=== PATIENT | male | born 1970 | race Caucasian/White ===

== ENCOUNTER 2016-06-08 22:19 | Observation (INO) | payer BC ==
[~2016-06-08] VITALS: Ht 172.7 cm; Wt 93.5 kg
[~2016-06-08 22:19] MED LIST: ZITHROMAX Z PA250 MG PO
[2016-06-08 22:52] VITALS: BP 16/91
[2016-06-08] MEDS ORDERED: SYMBICORT1 AE1 IH (23:00)
--- NOTE | 2016-06-08 23:46 | Emergency Room Report ---
History of Present Illness Time Seen by 230 Presenting Problem in Triage Pt arrived:Wheelchair Presenting Problem:BLOOD IN URINE AFTER SELF CATH TODAY. NO OTHER PAIN OR SYMPTOMS Onset of symptoms date/time:/ or onset unknown for:MEDICAL HX UNKNOWN Treatment Prior to Arrival: COMMISSIONING SPECIALIST Provided by: Sepsis Risk Assessment: Temp: 98 B/P: MAP: 66 Pulse: 83 Resp: 20 Recent fever? N Clinical Suspician of Infection? N Mental Status: 1 - Regular (Normal Baseline) Sepsis Risk:Low Sepsis Risk Have you (or family members/close friends) recently traveled outside the [place]? N If Yes, where/when: Have you had exposure to infectious disease within the past month? TB? Other? Specify: Source patient, RN notes reviewed, family, old records Exam Limitations no limitations Comment paraplegic after self cath had hematuria and now distended bladder - no fever or vomiting Cardiac Chest Pain Chest pain indicative of cardiac No Timing/Duration this evening Severity moderate ALLERGIES Coded Allergies: Penicillins (06/08/16) cephalexin (From KEFLEX) (06/08/16) nitrofurantoin (From MACRODANTIN) (06/08/16) Home Medications Reported Medications BUDESONIDE/FORMOTEROL FUMARATE (Symbicort 160-4.5 Mcg Inhaler) 1 PUFF IH BID #10 History Medical History General Angina: No [place]: No Hypertension? No Hyperlipidemia? No CHF? No COPD? No Asthma? Yes CVA? No Seizures? No Diabetes? No GB Disease: No MRSA? No TB? No Cancer? No More? Yes Additional hx: T4 INJURY. Immunization Hx DT/Tetanus UNKNOWN Surgical Hx Previous Surgery?Y LUKEE RODS IN BACK RODS REMOVED SCOPE PROCEDURE ON GALL- BLADDER Social History Smoking Hx Smoker: Former Smoker Tobacco: No Alcohol Alcohol: No Drugs none Review of Systems All Other Systems Reviewed and Negative Constitutional denies fever Eyes denies drainage ENT denies: ear discharge, epistaxis, throat pain. Respiratory denies cough, denies shortness of breath, denies wheezing Cardiovascular denies chest pain, denies syncope Gastrointestinal denies abdominal pain, denies diarrhea, denies vomiting Genitourinary see HPI, hematuria. denies: dysuria, frequency, hesitancy. Musculoskeletal denies joint pain, denies neck pain Skin denies rash Psychiatric/Neurological denies headache, denies seizure Physical Exam Vital Signs Vital Signs Date Time Temp Pulse Resp B/P Pulse O2 O2 Flow FiO2 Ox Delivery Rate 06/08 2252 98.0 83 20 99 - WBC >12,000 or <4,000 or 10% bands? 2 or more SIRS Criteria Met? B/P: MAP:66 Creatinine >2.0? UA output<0.5ml/kg/hr for 2 hrs? Platelet count >100,000? Lactate >2.0mmol/1? INR >1.2 or PTT > than 60 sec? Evidence of Organ Dysfunction? Provider documented clinical suspician of infection? N Sepsis Criteria Count: 1 Sepsis Risk: Low Sepsis Risk General Appearance no apparent distress Eye Exam - bilateral eye PERRL, bilateral eye EOMI Ear, Nose, Throat normal ENT inspection Neck supple Respiratory Status No: respiratory distress. Cardiovascular regular rate/rhythm Peripheral Pulses Pulses normal Yes Gastrointestinal soft, no guarding, no rebound, tenderness, distended bladder Extremities normal inspection Neurologic paraplegic Mental status normal mood/affect Skin intact Medical Decision Making LABS/Meds/Orders Pt receiving controlled substance in ED? No Results/Orders Laboratory Tests 06/09/16 0130: Urine Color RED, Urine Appearance Turbid, Urine pH 7.0, Ur Specific [place] 1.020, Urine Protein 3+ H, Urine Ketones NEGATIVE, Urine Blood 3+ H, Urine Nitrate POSITIVE H, Urine Bilirubin NEGATIVE, Urine Urobilinogen 0.2, Ur Leukocyte Esterase 1+ H, Urine RBC TNTC, Urine WBC 3-5, Urine Bacteria 1+, Urine Glucose NEGATIVE 06/09/16 0039: Sodium 141, Potassium 3.9, Chloride 106, Carbon Dioxide 29, BUN 18, Creatinine 0.8, Estimated Creat Clear 148, Estimated GFR (MDRD) 104, Glucose 118 H, Calcium 9.0, Total Bilirubin 0.5, AST 15, ALT 28, Alkaline Phosphatase 131 H, Total Protein 7.7, Albumin 3.8, Globulin 3.9 H, Albumin/Globulin Ratio 1.0 L, WBC 10.4, RBC 5.48, Hgb 15.9, Hct 47.3, MCV 86.4, RDW 13.8, Plt Count 229, MPV 6.0 L, Gran % 78.4, Gran # 8.1 H, Lymphocytes % 12.6, Monocytes % 4.7, Eosinophils % 3.8, Basophils % 0.5, Lymphocytes # 1.3, Monocytes # 0.5, Eosinophils # 0.4, Basophils # 0.1, PUBS MCHC 33.5, MCH 29.0 Current Medication Orders Sig/Peyman Start time Last Medication Dose Route Stop Time Status Admin Levofloxacin/Dextrose 150 ML ONCE ONE 06/09 0315 CKDr IV 06/09 0444 Sodium Chloride 10 ML PRN PRN 06/09 0030 AC IV 06/10 0022 Orders Procedure Date/time Status DIET-NOTHING BY MOUTH 06/09 B Active CULTURE, URINE 06/[address] ABD & PELVIS W/O CONTRAST 06/[address] SCAN REQ 06/09 0023 Complete IV SALINE LOCK 06/09 0023 Active CULTURE, BLOOD 06/09 0023 Active COMPLETE METABOLIC PANEL 06/09 0023 Complete CBC WITH AUTO DIFF 06/09 0023 Complete URINARY CATHETER INSERT 06/08 2302 Active URINALYSIS/COMPLETE 06/08 2302 Complete XRAY/CT/US XRAY/CT/US CT abdomen, pelvis CT interpretation by discussed w/radiologist Time results known: 0259 CT Results abnormal (distended bladder ) Procedures Cath/NG/IV/CPR/Add.Proc Physician assisted procedures Risks/benefits discussed with pt/guardian? Yes Physician performed Hill cath insert simple. Departure Departure Time of Disposition 0300 Disposition Still a Patient Clinical Impression Primary Impression: Hematuria Secondary Impressions: Acute urinary retention Condition STABLE Referrals Arnaud Millard MD (Family) discussed with dr leanne [facility] Critical Care No at 0311
[2016-06-09 00:49] LABS: HEMOGLOBIN 15.9 g/dL (14.1-18.0); LYMPH # 1.3 K/mm3 (0.7-4.5); LYMPH % 12.6 % (10-50)
[2016-06-09 02:12] LABS: URINE BILIRUBIN - DIPSTICK NEGATIVE (NEG); URINE BLOOD 3+ (NEG)
[2016-06-09 04:25] VITALS: BP 148/92
[2016-06-09] MEDS ORDERED: PROAIR HFA0.09 MG/AC IH (04:48)
--- NOTE | 2016-06-09 07:15 | HISTORY AND PHYSICAL REPORT ---
Demographics: Admit date: 06/08/16 Chief complaint: Bladder although obstruction/hematuria PRIMARY DIAGNOSIS: HEMATURIA Allergies: Coded Allergies: Penicillins (06/08/16) cephalexin (From KEFLEX) (06/08/16) nitrofurantoin (From MACRODANTIN) (06/08/16) History of present illness: History of present illness: 45-year-old white male paraplegic from remote accident who does self catheter at home for urinary drainage and yesterday noticed that he was meeting some resistance when he inserted a urinary catheter had some bleeding. Last night after removing his pad to go to bed he noticed more blood and some blood mixed with urine and came to the emergency department where CT scan showed significantly distended bladder a Hill catheter was placed with significant drainage of bloody urine. He is admitted to hospital for antibiotics given his urinary retention and her urine sediment and a urology consultation. This morning he feels much better Past medical history: Family HX Diabetes No CAD No Hypertension No Hyperlipidemia No Cancer Yes TB No Immunization HX DT/Tetanus UNKNOWN Pneumonia Never Had TB Test in last year No General Angina: No RI: No Hypertension? No Hyperlipidemia? No CHF? No COPD? No Asthma? Yes CVA? No Seizures? No Diabetes? No GB Disease: No MRSA? No TB? No Cancer? No More? Yes Additional hx: T4 INJURY. Past Surgical HX Previous Surgery?Y LUKEE RODS IN BACK RODS REMOVED SCOPE PROCEDURE ON GALL- BLADDER Current home meds: Reported Medications BUDESONIDE/FORMOTEROL FUMARATE (Symbicort 160-4.5 Mcg Inhaler) 1 PUFF IH BID #10 Albuterol Sulfate (Proair Hfa) 1 PUFF IH Q6HP PRN SOA #17 Social Hx: Smoking HX Tobacco No Alcohol Alcohol: No Hx of Drug Use Drug Use? No Patien't marital status is single Patient's support system is excellent Review of systems: Constitutional No: fever, malaise, weakness. Respiratory No: no symptoms reported. Cardiovascular No no symptoms reported Gastrointestinal/Abdominal No no symptoms reported Genitourinary see HPI. Musculoskeletal No: no symptoms reported. Neurological Yes: see HPI. Exam: Lab data for last 24 hours: Laboratory Tests 06/09/16 0130: Urine Color RED, Urine Appearance Turbid, Urine pH 7.0, Ur Specific [place] 1.020, Urine Protein 3+ H, Urine Ketones NEGATIVE, Urine Blood 3+ H, Urine Nitrate POSITIVE H, Urine Bilirubin NEGATIVE, Urine Urobilinogen 0.2, Ur Leukocyte Esterase 1+ H, Urine RBC TNTC, Urine WBC 3-5, Urine Bacteria 1+, Urine Glucose NEGATIVE 06/09/16 0039: Sodium 141, Potassium 3.9, Chloride 106, Carbon Dioxide 29, BUN 18, Creatinine 0.8, Estimated Creat Clear 148, Estimated GFR (MDRD) 104, Glucose 118 H, Calcium 9.0, Total Bilirubin 0.5, AST 15, ALT 28, Alkaline Phosphatase 131 H, Total Protein 7.7, Albumin 3.8, Globulin 3.9 H, Albumin/Globulin Ratio 1.0 L, WBC 10.4, RBC 5.48, Hgb 15.9, Hct 47.3, MCV 86.4, RDW 13.8, Plt Count 229, MPV 6.0 L, Gran % 78.4, Gran # 8.1 H, Lymphocytes % 12.6, Monocytes % 4.7, Eosinophils % 3.8, Basophils % 0.5, Lymphocytes # 1.3, Monocytes # 0.5, Eosinophils # 0.4, Basophils # 0.1, PUBS MCHC 33.5, MCH 29.0 Microbiology 06/09 0130 URINE CC: Urine Culture - RECD 06/09 38 BLOOD: Anaerobic Blood Culture - RECD 06/09 38 BLOOD: Aerobic Blood Culture - RECD Admission vital signs: 1ST Vital Signs Result Date Time Pulse Ox 99 06/09 2251 B/P 16/91 06/09 2251 Temp 98.0 06/09 2251 Pulse 83 06/08 2252 Resp 20 06/08 2252 O2 Delivery ROOM AIR 06/09 0425 Additional information: Patient is pleasant alert, talkative, oriented x3. Cranial nerves intact, heart rate regular, lungs clear. Abdomen is soft, patient has no tenderness but normally does not feel abnormal pain with his paraplegia symptoms. Neurology exam of the lower extremity is markedly abnormal as previously noted. Hill catheter is in place, draining bloody urine. Plan: Problem List 1. Acute urinary retention 2. Hematuria Plan: Plan will be to admit to hospital. Urology consultation. Antibiotics. Await urine culture. at 0714
--- NOTE | 2016-06-09 07:32 | RADIOLOGY REPORT PS360 ---
CT ABD PELVIS W/O CONTRAST CLINICAL INDICATION: ABD PAIN/HEMATURIA ORDERING PHYSICIAN: Arnaud Millard MD PATIENT AGE: 45 years COMPARISON: None TECHNIQUE: Axial images obtained with sagittal and coronal reformats. PROCEDURE: Oral Contrast: None IV Contrast: None . FINDINGS: Atelectatic changes are present in the lung bases. There is a 14 mm right lower lobe nodule which does appear to contain some central calcification. There is diffuse artifact from metallic hardware in the lumbar and thoracic spine and the patient's arms. Artifact does obscure fine detail. There is subtle decreased attenuation in the left lobe of the liver. This may be related to the artifact. Cannot exclude underlying mass within the left lobe of the liver. Ultrasound may be of further value. Heterogeneous density is present in the gallbladder and may be due to sludge and/or stones. The spleen and pancreas are unremarkable. There is mild bilateral hydronephrosis and ureteral dilatation. There is distention of the urinary bladder with irregular increased density in the urinary bladder posteriorly and inferiorly measuring 6.8 x 8.4 cm and may be related to blood clot and/or neoplasm. Small amount gas is present in the urinary bladder is well. No intestinal obstruction or free air. No evidence of diverticulitis or appendicitis. Extensive postsurgical changes are present in the lumbar spine. There is posterior subluxation of the right femoral head. There are bilateral hip joint effusions and capsular wall thickening. IMPRESSION: 1. Irregular hyperdensity in the urinary bladder posteriorly and may be related to a blood clot and/or neoplasm. 2. Bilateral hydroureteronephrosis with bladder distention a small amount gas in the urinary bladder. 3. Possible lesion in the left lobe of the liver versus artifact. 4. Sludge and/or stones within the gallbladder. 5. Postsurgical changes of the lumbar spine. Bilateral hip joint effusions with capsular thickening and posterior subluxation of the right hip
[2016-06-09 08:00] VITALS: BP 138/84
[2016-06-09 08:30] VITALS: BP 138/84
[2016-06-09] MEDS ORDERED: [UNRECOGNIZED DRUG - OTHER] MR (10:16)
[2016-06-09] MEDS ORDERED: VIAGRA100 MG PO (10:18)
[2016-06-09] MEDS ORDERED: VITAMIN D50000 I1 PO (10:18)
--- NOTE | 2016-06-09 10:42 | PHARMACY CLINIC NOTE ---
Patient Demographics Patient Demographics Admission date: 06/09/16 Date: 06/09/16 Time: 1042 Allergies Coded Allergies: Penicillins (06/08/16) cephalexin (From KEFLEX) (06/08/16) nitrofurantoin (From MACRODANTIN) (06/08/16) HEIGHT- FT: 5 IN: 8.00 K.497 VTE General Information Labs: Laboratory Tests 06/09 0039 Hematology Hgb (14.1 - 18.0 g/dL) 15.9 Hct (42.0 - 52.0 %) 47.3 Plt Count (142 - 424 K/mm3) 229 Disclaimer The following section includes nursing documentation that has been pulled in for pharmacy review. Patient's VTE score: 2 Patient's VTE Risk: LOW RISK Clinical trial participant? No VTE prophylaxis NQF [id number] VTE prophylaxis ordered? Yes Type of prophylaxis/treatment: SERENE at 1042
--- NOTE | 2016-06-09 14:55 | CONSULT NOTE-UROLOGY ---
Urology Initial Visit Date of Visit: 06/09/16 HPI/Chief Complaint: Referring provider: 45/M Presenting problem: Length of time pt has had problem: Person attending patient for this visit: Patient seen for hospital consultation regarding hematuria. Patient is paraplegic from remote injury. He has not seen urology in several years. He was previously followed by Dr. Schneider but has seen no one since his [facility]. He practices intermittent self-catheterization. He recently had noticed some slight occasional difficulty with catheter placement. The typically if he shifted his body position he was able to catheterize. Yesterday he had a similar experience but after catheter placement he had initially blood-tinged urine which cleared. Later in the day he had significant bleeding per the urethra noted and presented to the emergency room. A Hill catheter was placed and a CT scan obtained. He did appear to have some clot within the bladder. His catheter has drained well. His urinalysis was not trapped positive with leukocytes present. Urine culture is pending. He has had no fever or chills. His serum white count was 10.[address] scan also demonstrated some hydronephrosis. An moderate amount of clot in the bladder. A creatinine of 0.8. Problem List: 1. Hematuria 2. Acute cystitis 3. Neurogenic dysfunction of the urinary bladder 4. Acute urinary retention Past Medical History Arthritis? Diabetes? N Hyperlipedemia? N Hypertension? N Heart Problems? OR? N SOA? Asthma? Y Lung Disease? COPD? N TB? N Anemia? N Bleeding Disorder? Cancer? N Radiation Tx? Hoarsness? Thyroid Problems? Ulcers? N Kidney Disease? Liver Disease? Glaucoma? Seizures? N CVA? N Immune Disease? HIV? Trouble w/anesthesia? Abn PSA? Prostate Biopsy? Sexual Dysfunction? Abn Periods? Female Hormone Problems? Uterus/Ovary Problems? ? : Para: Control? Type of BC: Surgical & Social History: Previous Surgery?Y LUKEE RODS IN BACK RODS REMOVED SCOPE PROCEDURE ON GALL- BLADDER Tobacco Use:N Type: Packs/day: If No, have you ever used and quit how long ago? Alcohol Use: Marital Status: Occupation: Family History: Anemia? Arthritis? Asthma? TB?N Cancer?Y Bleeding Troubles? Hyperlipidemia?N Diabetes?N COPD? Glaucoma? OR? Heart Problems? HIV? Hypertension?N Hoarsness? Immune Disease? Kidney Disease? Liver Disease? Lung Disease? Radiation Tx? Seizures? Shortness of Breath? Ulcers? CVA? Thyroid Problems? Trouble w/Anes? Any men in family ever diagnosed with prostate cancer? Relationship of this person: Current Home Medications Reported Medications BUDESONIDE/FORMOTEROL FUMARATE (Symbicort 160-4.5 Mcg Inhaler) 2 PUFF IH BID #10 Albuterol Sulfate (Proair Hfa) 2 PUFF IH QIDP PRN BREATHING #17 Testosterone Cypionate (Testone Cik) 200 MG MR Q2WKS ERGOCALCIFEROL (VITAMIN D2) (Vitamin D2) 50,000 IUNITS PO TWICE WEEKLY Sildenafil Citrate (Viagra) 100 MG PO DAILYP PRN ERECTILE DYSFUNCTION Allergies: Coded Allergies: Penicillins (06/08/16) cephalexin (From KEFLEX) (06/08/16) nitrofurantoin (From MACRODANTIN) (06/08/16) Vital Signs/Wt/Labs Weight -LB:206 OZ:2 K.497 Method:Bed Scales Height -FT:5 IN:8 CM:172.72 BMI:31.3 Vital Signs Date Time Temp Pulse Resp B/P Pulse O2 O2 Flow FiO2 Ox Delivery Rate 06/09 0830 98.9 96 18 138/84 97 06/09 0800 98.9 96 18 138/84 97 ROOM AIR 06/09 0425 91 06/09 0425 98.1 91 18 148/92 06/09 0425 98 ROOM AIR 06/09 0425 98.1 91 18 148/92 98 ROOM AIR 06/09 0340 74 20 121/68 99 06/08 2252 98.0 83 20 16/91 99 Color: Appearance Glucose: Ketone: Bilirubin: Sp.[place]: pH: Protein: Urobilinogen: Blood: Nitrite: Leukocytes: Urine collection method? Residual (ml): Laboratory Tests 06/09/16 0130: Urine Color RED, Urine Appearance Turbid, Urine pH 7.0, Ur Specific [place] 1.020, Urine Protein 3+ H, Urine Ketones NEGATIVE, Urine Blood 3+ H, Urine Nitrate POSITIVE H, Urine Bilirubin NEGATIVE, Urine Urobilinogen 0.2, Ur Leukocyte Esterase 1+ H, Urine RBC TNTC, Urine WBC 3-5, Urine Bacteria 1+, Urine Glucose NEGATIVE 06/09/16 0039: Sodium 141, Potassium 3.9, Chloride 106, Carbon Dioxide 29, BUN 18, Creatinine 0.8, Estimated Creat Clear 148, Estimated GFR (MDRD) 104, Glucose 118 H, Calcium 9.0, Total Bilirubin 0.5, AST 15, ALT 28, Alkaline Phosphatase 131 H, Total Protein 7.7, Albumin 3.8, Globulin 3.9 H, Albumin/Globulin Ratio 1.0 L, WBC 10.4, RBC 5.48, Hgb 15.9, Hct 47.3, MCV 86.4, RDW 13.8, Plt Count 229, MPV 6.0 L, Gran % 78.4, Gran # 8.1 H, Lymphocytes % 12.6, Monocytes % 4.7, Eosinophils % 3.8, Basophils % 0.5, Lymphocytes # 1.3, Monocytes # 0.5, Eosinophils # 0.4, Basophils # 0.1, PUBS MCHC 33.5, MCH 29.0 Microbiology Date/Time Procedure - Status Source Growth 06/09 0130 Urine Culture - RES URINE CC 06/09 38 Anaerobic Blood Culture - RECD BLOOD 06/09 38 Aerobic Blood Culture - RECD BLOOD Exam: General appearance: alert, no acute distress (he is lying in a hospital bed ) Objective: Urine is dark natasha old blood-tinged urine. Impression/Plan: Neurogenic bladder. Hematuria likely secondary to urinary infection. We will have him change his catheter to a 20 [place] catheter in hopes to evacuate any clot. We will await his urine culture. We will leave the Hill catheter for 1 week. If he is doing well he can be discharged with catheter to leg bag drainage. If clot retention is an issue we may require cystoscopy with clot evacuation. Current plan will be to treat him. He will keep the catheter for 1 week and remove at home. He will resume intermittent catheterization and follow- up with me in 2 weeks. Considering his hydronephrosis I will suggest starting anticholinergics. He relates that he occasionally does have incontinence between catheterizations. at 9360
--- NOTE | 2016-06-09 14:55 | CONSULT NOTE-UROLOGY ---
Urology Initial Visit Date of Visit: 06/09/16 HPI/Chief Complaint: Referring provider: 45/M Presenting problem: Length of time pt has had problem: Person attending patient for this visit: Patient seen for hospital consultation regarding hematuria. Patient is paraplegic from remote injury. He has not seen urology in several years. He was previously followed by Dr. Schneider but has seen no one since his senior living. He practices intermittent self-catheterization. He recently had noticed some slight occasional difficulty with catheter placement. The typically if he shifted his body position he was able to catheterize. Yesterday he had a similar experience but after catheter placement he had initially blood-tinged urine which cleared. Later in the day he had significant bleeding per the urethra noted and presented to the emergency room. A Hill catheter was placed and a CT scan obtained. He did appear to have some clot within the bladder. His catheter has drained well. His urinalysis was not trapped positive with leukocytes present. Urine culture is pending. He has had no fever or chills. His serum white count was 10.[address] scan also demonstrated some hydronephrosis. An moderate amount of clot in the bladder. A creatinine of 0.8. Problem List: 1. Hematuria 2. Acute cystitis 3. Neurogenic dysfunction of the urinary bladder 4. Acute urinary retention Past Medical History Arthritis? Diabetes? N Hyperlipedemia? N Hypertension? N Heart Problems? NM? N SOA? Asthma? Y Lung Disease? COPD? N TB? N Anemia? N Bleeding Disorder? Cancer? N Radiation Tx? Hoarsness? Thyroid Problems? Ulcers? N Kidney Disease? Liver Disease? Glaucoma? Seizures? N CVA? N Immune Disease? HIV? Trouble w/anesthesia? Abn PSA? Prostate Biopsy? Sexual Dysfunction? Abn Periods? Female Hormone Problems? Uterus/Ovary Problems? ? : Para: Control? Type of BC: Surgical & Social History: Previous Surgery?Y LUKEE RODS IN BACK RODS REMOVED SCOPE PROCEDURE ON GALL- BLADDER Tobacco Use:N Type: Packs/day: If No, have you ever used and quit how long ago? Alcohol Use: Marital Status: Occupation: Family History: Anemia? Arthritis? Asthma? TB?N Cancer?Y Bleeding Troubles? Hyperlipidemia?N Diabetes?N COPD? Glaucoma? NM? Heart Problems? HIV? Hypertension?N Hoarsness? Immune Disease? Kidney Disease? Liver Disease? Lung Disease? Radiation Tx? Seizures? Shortness of Breath? Ulcers? CVA? Thyroid Problems? Trouble w/Anes? Any men in family ever diagnosed with prostate cancer? Relationship of this person: Current Home Medications Reported Medications BUDESONIDE/FORMOTEROL FUMARATE (Symbicort 160-4.5 Mcg Inhaler) 2 PUFF IH BID #10 Albuterol Sulfate (Proair Hfa) 2 PUFF IH QIDP PRN BREATHING #17 Testosterone Cypionate (Testone Cik) 200 MG MR Q2WKS ERGOCALCIFEROL (VITAMIN D2) (Vitamin D2) 50,000 IUNITS PO TWICE WEEKLY Sildenafil Citrate (Viagra) 100 MG PO DAILYP PRN ERECTILE DYSFUNCTION Allergies: Coded Allergies: Penicillins (06/08/16) cephalexin (From KEFLEX) (06/08/16) nitrofurantoin (From MACRODANTIN) (06/08/16) Vital Signs/Wt/Labs Weight -LB:206 OZ:2 K.497 Method:Bed Scales Height -FT:5 IN:8 CM:172.72 BMI:31.3 Vital Signs Date Time Temp Pulse Resp B/P Pulse O2 O2 Flow FiO2 Ox Delivery Rate 06/09 0830 98.9 96 18 138/84 97 06/09 0800 98.9 96 18 138/84 97 ROOM AIR 06/09 0425 91 06/09 0425 98.1 91 18 148/92 06/09 0425 98 ROOM AIR 06/09 0425 98.1 91 18 148/92 98 ROOM AIR 06/09 0340 74 20 121/68 99 06/08 2252 98.0 83 20 16/91 99 Color: Appearance Glucose: Ketone: Bilirubin: Sp.[place]: pH: Protein: Urobilinogen: Blood: Nitrite: Leukocytes: Urine collection method? Residual (ml): Laboratory Tests 06/09/16 0130: Urine Color RED, Urine Appearance Turbid, Urine pH 7.0, Ur Specific [place] 1.020, Urine Protein 3+ H, Urine Ketones NEGATIVE, Urine Blood 3+ H, Urine Nitrate POSITIVE H, Urine Bilirubin NEGATIVE, Urine Urobilinogen 0.2, Ur Leukocyte Esterase 1+ H, Urine RBC TNTC, Urine WBC 3-5, Urine Bacteria 1+, Urine Glucose NEGATIVE 06/09/16 0039: Sodium 141, Potassium 3.9, Chloride 106, Carbon Dioxide 29, BUN 18, Creatinine 0.8, Estimated Creat Clear 148, Estimated GFR (MDRD) 104, Glucose 118 H, Calcium 9.0, Total Bilirubin 0.5, AST 15, ALT 28, Alkaline Phosphatase 131 H, Total Protein 7.7, Albumin 3.8, Globulin 3.9 H, Albumin/Globulin Ratio 1.0 L, WBC 10.4, RBC 5.48, Hgb 15.9, Hct 47.3, MCV 86.4, RDW 13.8, Plt Count 229, MPV 6.0 L, Gran % 78.4, Gran # 8.1 H, Lymphocytes % 12.6, Monocytes % 4.7, Eosinophils % 3.8, Basophils % 0.5, Lymphocytes # 1.3, Monocytes # 0.5, Eosinophils # 0.4, Basophils # 0.1, PUBS MCHC 33.5, MCH 29.0 Microbiology Date/Time Procedure - Status Source Growth 06/09 0130 Urine Culture - RES URINE CC 06/09 38 Anaerobic Blood Culture - RECD BLOOD 06/09 38 Aerobic Blood Culture - RECD BLOOD Exam: General appearance: alert, no acute distress (he is lying in a hospital bed ) Objective: Urine is dark natasha old blood-tinged urine. Impression/Plan: Neurogenic bladder. Hematuria likely secondary to urinary infection. We will have him change his catheter to a 20 [place] catheter in hopes to evacuate any clot. We will await his urine culture. We will leave the Hill catheter for 1 week. If he is doing well he can be discharged with catheter to leg bag drainage. If clot retention is an issue we may require cystoscopy with clot evacuation. Current plan will be to treat him. He will keep the catheter for 1 week and remove at home. He will resume intermittent catheterization and follow- up with me in 2 weeks. Considering his hydronephrosis I will suggest starting anticholinergics. He relates that he occasionally does have incontinence between catheterizations. at 4341
[2016-06-09 16:00] VITALS: BP 161/99
[2016-06-09 20:00] VITALS: BP 150/99
[2016-06-10 06:15] VITALS: BP 152/89
[2016-06-10 06:29] LABS: LYMPH # 1.6 K/mm3 (0.7-4.5); LYMPH % 24.7 % (10-50)
[2016-06-10 06:34] LABS: HEMOGLOBIN 14.3 g/dL (14.1-18.0)
--- NOTE | 2016-06-10 07:20 | ACUTE CARE PROGRESS NOTE (QUA) ---
Progress Notes Subjective Date 06/10/16 Time 0717 Note Patient overall feels better. Urology consult note reviewed and appreciated. Patient is pleasant talkative, comfortable. Exam shows clotting in the Hill catheter tube. No evidence of distention today however Objective Findings Last VS-Temp:98.2 B/P:152/89 Pulse:74 Resp:20 SaO2:96 ROOM AIR Last weight lbs:206 oz:2 K.497 Method:Bed Scales Assessment/Plan Problem List 1. Acute urinary retention 2. Hematuria Patient condition Stable, continue irrigation. When clots clear DC home with urology plan. This inpt stay is expected to cross 2 MNs from start of care No at 0766
[2016-06-10 08:00] VITALS: BP 166/95
[2016-06-10 17:40] VITALS: BP 152/98
[2016-06-10 20:30] VITALS: BP 151/88
[2016-06-10 20:50] VITALS: BP 151/88
[2016-06-11 06:00] VITALS: BP 159/87
--- NOTE | 2016-06-11 07:33 | ACUTE CARE PROGRESS NOTE (QUA) ---
Progress Notes Admission Date: 06/09/16 Subjective Date 06/11/16 Time 0730 Note Overall patient had a good night. Urine catheter bleeding cleared, did have some more bleeding after he was moved around a little bit by nursing staff this morning. Does have a small stage I decubitus ulcer on the right hip. Cardiopulmonary exam unchanged. Urine this morning is minimally discolored with some blood but flow seems good in the catheter. Objective Findings Last VS-Temp:98.5 B/P:159/87 Pulse:81 Resp:20 SaO2:97 ROOM AIR Last weight lbs:206 oz:2 K.497 Method:Bed Scales Assessment/Plan Problem List 1. Acute urinary retention 2. Hematuria Patient condition Improving This inpt stay is expected to cross 2 MNs from start of care No Antibiotic Stewardship (2) Current Culture Results Microbiology 06/09 0130 URINE CC: Urine Culture - COMP 06/09 38 BLOOD: Anaerobic Blood Culture - RECD 06/09 38 BLOOD: Aerobic Blood Culture - RECD Infxn that will respond? Yes Right drug,dose,and route? Yes More targeted antbx? No How long atbx needed? 7 at 0756
[2016-06-11] MEDS ORDERED: LEVAQUIN500 MG PO (07:34)
--- NOTE | 2016-06-11 07:37 | DISCHARGE SUMMARY STANDARD ---
Demographics Admit date: 06/08/16 Discharge date: 06/11/16 History of present illness History of present illness 45-year-old white male paraplegic from remote accident who does self catheter at home for urinary drainage and yesterday noticed that he was meeting some resistance when he inserted a urinary catheter had some bleeding. Last night after removing his pad to go to bed he noticed more blood and some blood mixed with urine and came to the emergency department where CT scan showed significantly distended bladder a Hill catheter was placed with significant drainage of bloody urine. He is admitted to hospital for antibiotics given his urinary retention and her urine sediment and a urology consultation. This morning he feels much better Hospital Course Hospital Course: Patient was admitted, Hill catheter was placed as noted. Renal function improved. Levaquin was continued because of indwelling Hill catheter and hematuria and risk of sepsis from urinary seating. Urology consultation was obtained, reviewed and appreciated. Directions were followed. Patient continued to have some bleeding in the catheter. This improved slowly, and over the last 12-24 hours has almost cleared. This morning the patient is doing well, afebrile, only minimal tea-colored urine from small amounts of blood. Plan: discharge patient home on Levaquin while he has his indwelling Hill catheter in. [facility] health agency will be contacted given his bedbound/homebound status because of his paraplegia and indwelling Hill catheter and for wound care because of a stage I decubitus on his right buttock as well as to remove the Hill catheter in one week. Urology appointment on June [address] Monte. Discharge diagnoses Problem List 1. Acute urinary retention 2. Hematuria Medications Medications: Discharge meds are as noted. Follow up Follow up in office in: 12 DAYS with: Demond Monte MD at [id number]
[2016-06-11 08:05] VITALS: BP 168/98
[2016-06-11 09:07] VITALS: BP 168/98
[2016-06-11 12:12] VITALS: BP 173/102
[2016-06-11 13:40] VITALS: BP 173/102
== END 2016-06-11 13:30 | disposition home health service (06) ==
LOC: ER 22:19 → 2ND 06-09 03:11 → ER 06-09 03:11 → ICU 06-09 03:15 → 2ND 06-09 03:15 → ICU 06-09 03:15
PROVIDERS: Emergency Medicine
DX: N32.0 Bladder-neck obstruction (principal); R33.9 Retention of urine, unspecified; G82.20 Paraplegia, unspecified; S24.102S Unspecified injury at T2-T6 level of thoracic spinal cord, sequela; N30.01 Acute cystitis with hematuria
CPT/HCPCS: G0378